=== PATIENT | male | born 1985 | race Caucasian/White ===

== ENCOUNTER 2023-08-16 21:38 | Emergency (ER) | payer MEDICAID ==
[~2023-08-16] VITALS: Ht 185.4 cm; Wt 105.2 kg
[2023-08-16 21:49] VITALS: BP_SYST 127; PULSE 78; RESP 19; TEMP 97.8; O2SAT 96
[2023-08-16] MEDS ORDERED: MORPHINE 4 MG INJ. 4 MG/ML VIAL IM ONE (23:45)
[2023-08-17] MEDS ORDERED: TRAM50TA2 PO (02:34)
[2023-08-17] MEDS ORDERED: MORPHINE 4 MG INJ. 4 MG/ML VIAL IM ONE (03:00)
[2023-08-17 03:02] VITALS: BP_SYST 120; PULSE 66; RESP 18; TEMP 97.2; O2SAT 98
== END 2023-08-17 03:02 | disposition home or self-care (01) ==
LOC: SED 21:38
DX: M25.212 Flail joint, left shoulder (principal); M25.512 Pain in left shoulder; F11.20 Opioid dependence, uncomplicated; Z88.2 Allergy status to sulfonamides; Z88.7 Allergy status to serum and vaccine; Z79.899 Other long term (current) drug therapy
CPT/HCPCS: 99285; 73200; 76376; 96372 ×2; J2270 ×2

== ENCOUNTER 2023-09-16 21:16 | Emergency (ER) | payer MEDICAID ==
[~2023-09-16 21:16] MED LIST: TRAM50TA2 PO
== END 2023-09-16 21:53 | disposition left against medical advice (07) ==
LOC: SED 21:16
DX: R05.9 Cough, unspecified (principal); R50.9 Fever, unspecified; R51.9 Headache, unspecified; Z53.21 Procedure and treatment not carried out due to patient leaving prior to being seen by health care provider

== ENCOUNTER 2023-11-20 01:13 | Emergency (ER) | payer MEDICAID ==
[~2023-11-20] VITALS: Ht 190.5 cm; Wt 107.5 kg
[2023-11-20 01:17] VITALS: BP_SYST 123; PULSE 71; RESP 25; TEMP 97.8; O2SAT 99
[2023-11-20 02:04] LABS: BASOPHILS # (AUTO) 0.1 K/uL (0.0-0.2); BASOPHILS % (AUTO) 1.2 % (0.0-2.0); EOSINOPHILS # (AUTO) 0.2 K/uL (0.0-0.4); EOSINOPHILS % (AUTO) 2.2 % (0.0-4.0); HEMATOCRIT 46.4 % (36-54); HEMOGLOBIN 15.9 g/dL (14.0-18.0); LYMPHOCYTES # (AUTO) 4.2 K/uL (1.0-5.5); LYMPHOCYTES % (AUTO) 45.3 % (20.5-51.5); MEAN CORPUSCULAR HEMOGLOBIN 29 pg (27-31); MEAN CORPUSCULAR HGB CONC 34 % (32-36); MEAN CORPUSCULAR VOLUME 84 fL (79.0-98.0); MONOCYTES # (AUTO) 0.9 K/uL (0.0-1.0); NEUTROPHILS # (AUTO) 3.9 K/uL (1.8-7.7); NEUTROPHILS % (AUTO) 41.3 % (40.0-70.0); PLATELET COUNT (AUTO) 236 K/uL (130-430); RED BLOOD CELL COUNT(AUTO) 5.51 MIL/uL (4.2-6.2); RED CELL DISTRIBUTION WIDTH 13.4 % (9.0-15.0); WHITE BLOOD COUNT (AUTO) 9.4 K/uL (4.8-10.8)
[2023-11-20 02:11] LABS: ANION GAP 7 (5-15); CALCIUM 9.2 mg/dL (8.4-11.0); CARBON DIOXIDE 28 mmol/L (23-29); CHLORIDE 103 mmol/L (98-107); CREATININE 1.02 mg/dL (0.55-1.30); GFR AFRICAN AMERICAN 106 mL/min (>90); GLUCOSE 90 mg/dL (74-106); POTASSIUM 3.8 mmol/L (3.5-5.1); SODIUM SERUM 138 mmol/L (136-145); UREA NITROGEN, BLOOD 20 mg/dL (8-21)
[2023-11-20 02:15] LABS: ALANINE AMINOTRANSFERASE 27 U/L (12-78); ALBUMIN 3.9 g/dL (3.4-4.8); ASPARTATE AMINOTRANSFERASE 19 U/L (10-37); LIPASE 38 U/L (16-77); TOTAL BILIRUBIN 0.3 mg/dL (0.0-1.0); TOTAL PROTEIN, SERUM 7.4 g/dL (6.4-8.3)
[2023-11-20 02:25] LABS: GFR NON AFRICAN-AMERICAN 88 mL/min (>90)
[2023-11-20 02:27] LABS: COVID19 ANTIGEN SOFIA FIA NEGATIVE (NEGATIVE)
[2023-11-20 02:37] LABS: INFLUENZA TYPE A Negative (NEGATIVE); INFLUENZA TYPE B NEGATIVE (NEGATIVE)
[2023-11-20] MEDS: KETOROLAC TROMETHAMINE 30 MG VIAL IVP ONE (02:41)
[2023-11-20] MEDS: CYCLOBENZAPRINE HCL 10 MG TABLET (FLEXERIL) PO ONE (02:43)
[2023-11-20] MEDS: ACETAMINOPHEN 500 MG TABLET PO ONE (02:43)
[2023-11-20] MEDS ORDERED: CYCL10TA24 PO (02:55)
[2023-11-20] MEDS ORDERED: NAPR-1172 PO (02:55)
[2023-11-20] MEDS: KETOROLAC TROMETHAMINE 30 MG VIAL IM ONE (03:23)
[2023-11-20] MEDS ORDERED: TRAM50TA2 PO (03:34)
[2023-11-20 04:20] VITALS: BP_SYST 115; PULSE 66; RESP 20; TEMP 98; O2SAT 98
== END 2023-11-20 04:20 | disposition home or self-care (01) ==
LOC: SED 01:13
DX: R09.1 Pleurisy (principal); M25.511 Pain in right shoulder; Z88.2 Allergy status to sulfonamides; Z88.7 Allergy status to serum and vaccine; Z79.899 Other long term (current) drug therapy; Z20.822 Contact with and (suspected) exposure to COVID-19
CPT/HCPCS: 99285; 71046; 87426; 80053; 83690; 85025; 85379; 84484; 36415; 93005; 96372; 87804 ×2; J1885